=== PATIENT | female | born 1965 | race Caucasian/White ===

== ENCOUNTER 2017-04-08 17:50 | Emergency (ER) | payer SELFPAY ==
--- NOTE | ~2017-04-08 | ER ---
PATIENT'S NAME: SHELIA BARNETT [facility] AGE: 51 Y [address] ROOM: [place] [address] LOCATION: [facility] ADMIT DATE: 04/08/2017 ER/Outpatient Report DISCHARGE DATE: 04/08/2017 FAMILY PHYSICIAN: PHYSICIAN, NO ATTENDING PHYSICIAN: Panfilo Velazquez SEEN AT: 1805 hours. CHIEF COMPLAINT: Sore throat, headache. HISTORY OF PRESENT ILLNESS: The patient is a 51-year-old female, within the last 24 hours developed a sore throat, some hoarseness, and dry cough. She has also developed fever and chills today. Denies any skin rash. 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 She states she has had strep throat in the past. ALLERGIES: NO MEDICINAL ALLERGIES. HOME MEDICATIONS: None. MEDICAL HISTORY: Negative for any diabetes, chronic diseases. SURGERIES: None. SOCIAL HISTORY: Nonsmoker. Alcohol socially. REVIEW OF SYSTEMS: GENERAL: No fever or chills today. HEAD/EENT: Includes sore throat, headache. Denies any severe stiffness in her neck. RESPIRATORY: Occasional cough, has been nonproductive. SKIN: No presence of any rash. OBJECTIVE FINDINGS: VITAL SIGNS: Blood pressure was 154/94, temp was 101.8, pulse 74, respirations 24, O2 sats 94%. GENERAL APPEARANCE: White female. She is alert and oriented. EARS: Both TMs appeared normal. EYES: PERRLA. No icterus. PATIENT'S NAME: SHELIA BARNETT [facility] AGE: 51 Y [address] ROOM: [place] [address] LOCATION: [facility] ADMIT DATE: 04/08/2017 ER/Outpatient Report DISCHARGE DATE: 04/08/2017 FAMILY PHYSICIAN: PHYSICIAN, NO ATTENDING PHYSICIAN: Panfilo Velazquez NOSE: Airway is patent. THROAT: Slightly red, but no exudate. NECK: She has some tender in anterior nodes. No rigidity. LUNGS: Sounded clear peripherally. SKIN: Clear, warm, dry. LABORATORY DATA AND X-RAYS: Her rapid strep is negative. ASSESSMENT: Pharyngitis with fever. PLAN: We did give her a gram of Tylenol here which she felt much better after 15-20 minutes. The patient will try some [id number] Chloraseptic for her throat. She is going to continue the Tylenol every 4-6 hours for temperature greater than 101. Follow up with the emergency room or primary care if she does not improve over the next 48 hours. ROCKY REYNOLDS FOR MD ROD MENDOZA/karolyn /[id number] d: 04/08/17 2342 t: 04/18/17 1058, OUTPATIENT REPORT
== END 2017-04-08 18:40 | disposition disaster alternative care site (69) ==
LOC: GMED 17:50
DX: J02.9 Acute pharyngitis, unspecified (principal)